=== PATIENT | male | born 1985 | race Caucasian/White ===

== ENCOUNTER 2017-04-10 02:32 | Emergency (ER) | payer MEDICAID ==
[~2017-04-10] VITALS: Ht 182.9 cm; Wt 79.5 kg
[2017-04-10 02:35] VITALS: BP 119/86; TEMP 97.6
[2017-04-10] MEDS ORDERED: GEODON 40MG40 MG PO (02:39)
[2017-04-10 04:28] VITALS: PULSE 97
== END 2017-04-10 04:29 | disposition home or self-care (01) ==
LOC: COL.ER 02:32
DX: R00.2 Palpitations (principal); T43.595A Adverse effect of other antipsychotics and neuroleptics, initial encounter; F41.9 Anxiety disorder, unspecified